=== PATIENT | male | born 1985 | race Caucasian/White ===

== ENCOUNTER 2022-06-19 05:16 | Emergency (ER) | payer OTHER, SELFPAY ==
[2022-06-19 05:22] VITALS: BP 141/82; PULSE 101; RESP 20; TEMP 36.8; O2SAT 97; BMI 21.6
[2022-06-19 05:27] VITALS: BP 141/82; PULSE 101; RESP 20; TEMP 36.8; O2SAT 98
[2022-06-19 05:27] LABS: Glucose, Whole Blood 223 mg/dL (60-115)
[2022-06-19 06:00] VITALS: BP 148/81; PULSE 102; RESP 16; TEMP 37; O2SAT 98
--- NOTE | 2022-06-19 06:09 | ED.EYEPROB ---
HPI - Eye Problem General Chief complaint: Eye Problems Stated complaint: LEFT EYE REDNESS/SWELLING Time Seen by Provider: 06/19/22 06:06 Source: patient Mode of arrival: EMS Limitations: no limitations History of Present Illness HPI Narrative: Patient will contact lenses changes every 3 weeks slept with the lens on in left eye for couple of hours woke up noticed blurred vision and redness of left eye Related Data Previous Rx's Medication Instructions Recorded moxifloxacin 0.5 % eye drops 1 drp ophthalmic (eye) .every hour 06/19/22 (Vigamox) #3 mL Allergies Allergy/AdvReac Type Severity Reaction Status Date / Time No Known Allergies Allergy Verified 06/19/22 06:12 Review of Systems Review of Systems: Yes all other systems are reviewed and are negative FOR[facility] Social History Social History Advance Directives: No Advance Directives Information Provided: No Physical Exam Vital Signs: Vital Signs: Last Vital Signs Temp 98.6 F 06/19/22 06:00 Pulse 102 H 06/19/22 06:00 Resp 16 06/19/22 06:00 BP 148/81 H 06/19/22 06:00 Pulse Ox 98 06/19/22 06:00 O2 Del Method 06/19/22 06:00 BMI result Body Mass Index 21.6 Const: General: healthy appearing Eyes: Conjunctivae: conjunctival abnormal (Injected left conjunctiva) left Sclerae: sclerae normal Corneas: corneas abnormal (Opacity in the center) on the left Pupils: Equal, round and reactive pupils present EOM: EOMs intact bilaterally Direct Ophthalmoscopy: normal light reflex, fundi normal bilaterally and anterior chamber normal Eyes/upper lids images: 1. Corneal opacity in the center injected conjunctiva anterior chamber clear Resp: Effort & Inspection: normal respiratory effort Auscultation: clear to auscultation bilaterally Cardio: Palpation: normal PMI Rate: regular rate Rhythm: regular rhythm Neuro: Cranial nerves: Yes Equal, round and reactive pupils present Medical Decision Making Medical Decision Making MDM Narrative: Patient with contact lens conjunctivitis and keratitis Vigamox eyedrops was not available in the ER was given tobramycin and prescription was given to use Vigamox every hour for 1st 24 hours done every 2 hours patient advised to follow with process design engineer Lab Data Labs: Lab Results 06/19/22 Range/Units 05:23 POC Glucose 223 H (60-115) mg/dL Discharge Plan Discharge Clinical Impression: Contact lens related conjunctivitis Patient Disposition: Home, Self-Care Instructions: Conjunctivitis (ED) Additional Instructions: Eyedrops in left eye as advised 1 drop every hour for 1st 24 hours See eye doctor in 2 days Report to the ER if not better Care of contact lenses as advised Do not wear contacts until completely heals Prescriptions: New moxifloxacin [Vigamox] 0.5 % drops 1 drp ophthalmic (eye) .every hour Qty: 3 0RF Rx Instructions: One drop in L eye every hr for 1st 24 hours then every 2 hrs for next 24 hours then every 4 hrs until better Referrals: Van Oviedo [Physician] - 2 days
[2022-06-19] MEDS: Tobramycin Sulfate 0.3% Sol Op 5 ML BTL 2 DROP EYE-LEFT (06:50)
== END 2022-06-19 06:50 | disposition home or self-care (01) ==
PROVIDERS: Emergency Provider Internal Medicine
DX: H10.32 Unspecified acute conjunctivitis, left eye (principal)
CPT/HCPCS: 82947; 99283